=== PATIENT | female | born 1960 | race Caucasian/White ===

== ENCOUNTER 2017-01-15 14:52 | Emergency (ER) | payer SELFPAY ==
[~2017-01-15] VITALS: Ht 177.8 cm; Wt 51.6 kg
[2017-01-15 16:01] LABS: HEMATOCRIT 22.7 % (37.0-47.0); HEMOGLOBIN 7.8 g/dl (12.0-16.0); IMMATURE GRANULOCYTES 1.9 % (0.0-1.0); MEAN CELL VOLUME 90.4 fL CALC (80.0-100.0); MEAN CORPUSCULAR HGB 31.1 pG CALC (26.0-32.0); MEAN CORPUSCULAR HGB CONC 34.4 g/L CALC (32.0-36.0); NEUT# 0.02 thou/uL (2.00-7.15); RED BLOOD COUNT 2.51 mill/uL (4.20-5.60); RED CELL DISTRI WIDTH 14.7 % (11.5-15.5)
[2017-01-15 16:24] LABS: INTERNATIONAL NORMALIZED RATIO 1.2 RATIO (0.7-1.3); PROTHROMBIN TIME 13.4 SECONDS (9.0-12.5)
[2017-01-15 16:25] LABS: ALBUMIN 2.9 g/dL (3.2-5.0); ALKALINE PHOSPHATASE 127 u/l (38-126); ANION GAP 12 (6-22 (CALC)); BILIRUBIN, TOTAL 1.3 mg/dL (0.0-1.4); BUN 12 mg/dL (7-17); BUN/CREATININE RATIO 13 (12-20 (CALC)); CARBON DIOXIDE 28 mmol/l (22-30); CHLORIDE 109 mmol/l (95-108); CREATININE 0.9 mg/dL (0.5-1.0); GFR > 60 ML/MIN (>=60 (CALC)); GFR FOR AFR.AMER. > 60 ML/MIN (>=60 (CALC)); GLUCOSE 116 mg/dL (65-105); POTASSIUM 3.2 mmol/l (3.5-5.1); SGOT/AST 28 u/l (14-36); SGPT/ALT 29 u/l (9-52); SODIUM 146 mmol/l (137-146); TOTAL PROTEIN 5.4 g/dL (6.3-8.2)
[2017-01-15 16:29] LABS: CALCIUM 5.9 mg/dL (8.4-10.2)
[2017-01-15] MEDS ORDERED: AMOX/K CLA400 MG/5 M PO (17:48)
[2017-01-15 20:51] VITALS: BP 143/78
== END 2017-01-15 21:00 | disposition hospice, inpatient (51) | DRG 983 ==
LOC: ED 14:52
PROVIDERS: Emergency Medicine
PROC: 0W3Q7ZZ Control Bleeding in Respiratory Tract, Via Natural or Artificial Opening (ICD-10-PCS; principal; 2017-01-15)
DX: R04.0 Epistaxis (principal)
CPT/HCPCS: J2060